=== PATIENT | female | born 1990 | race American Indian/Alaskan Native ===

== ENCOUNTER 2017-04-04 20:27 | Emergency (ER) | payer MEDICAID ==
[2017-04-04 20:55] VITALS: BP 133/80
--- NOTE | 2017-04-04 21:55 | EDM.PDOC ---
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, Other Medication(s) Lower Back Pain Score (Numeric/FACES): 5 - Related Data Allergies Allergy/AdvReac Type Severity Reaction Status Date / Time No Known Allergies Allergy Verified 04/04/17 20:31 Home Meds: Home Meds Ethinyl Estradiol/Drospirenone [Loryna 3 MG-0.02 MG] 1 tab PO DAILY 04/04/17 [ History] Past Medical History - Past Health History Medical/Surgical History: Denies Medical/Surgical History Social & Family History - Tobacco Use Smoking Status *Q: Unknown Ever Smoked Second Hand Smoke Exposure: No - Caffeine Use Caffeine Use: Reports: None - Alcohol Use Days Per Week of Alcohol Use: 0 - Recreational Drug Use Recreational Drug Use: No - Living Situation & Occupation Living situation: Reports: with Family ED ROS ENT - Review of Systems Review Of Systems: See Below Constitutional: Denies: Fever, Chills HEENT: Reports: Ear Pain, Sinus Problem, Throat Pain Respiratory: Reports: No Symptoms Cardiovascular: Reports: No Symptoms Endocrine: Reports: No Symptoms GI/Abdominal: Denies: Vomiting Musculoskeletal: Reports: No Symptoms Skin: Reports: No Symptoms ED EXAM, ENT - Physical Exam Exam: See Below Exam Limited By: No Limitations General Appearance: Alert, Mild Distress Eye Exam: Bilateral Eye: PERRL Ears: Normal External Exam, TM Erythema (right), TM Fluid (bilaterally) Nose: Normal Inspection Mouth/Throat: Normal Inspection, Pharyngeal Erythema (mild) Head: Atraumatic, Normocephalic, Sinus Tenderness Neck: Lymphadenopathy (L), Lymphadenopathy (R) Respiratory/Chest: No Respiratory Distress, Lungs Clear, Normal Breath Sounds Cardiovascular: Normal Peripheral Pulses, Regular Rate, Rhythm GI/Abdominal: Normal Bowel Sounds (Female) Exam: Normal External Exam Extremities: Normal Inspection Neurological: Alert, Oriented, Normal Cognition Psychiatric: Flat Affect, Other (Avoidant, minimal responses to questions offers no information voluntarily) Skin: Warm, Dry Course - Vital Signs Last Recorded V/S: Last Vital Signs Temp 98.2 F 04/04/17 20:54 Pulse 57 L 04/04/17 20:54 Resp 20 04/04/17 20:54 BP 133/80 04/04/17 20:54 Pulse Ox 100 04/04/17 20:54 - Orders/Labs/Meds Orders: Active Orders 24 hr Category Date Time Status CULTURE STREP A CONFIRMATION [] Stat Lab 04/04/17 20:56 Results STREP SCRN A RAPID W CULT CONF [] Stat Lab 04/04/17 20:56 Results Labs: Laboratory Tests 04/04/17 Range/Units 21:01 Urine Color Yellow (YELLOW) Urine Appearance Slightly cloudy (CLEAR) Urine pH 6.0 (5.0-9.0) Ur Specific [place] 1.015 (1.005-1.030) Urine Protein Negative (NEGATIVE) Urine Glucose (UA) Negative (NEGATIVE) Urine Ketones Negative (NEGATIVE) Urine Occult Blood Negative (NEGATIVE) Urine Nitrite Negative (NEGATIVE) Urine Bilirubin Negative (NEGATIVE) Urine Urobilinogen 0.2 (0.2-1.0) mg/dL Ur Leukocyte Esterase Negative (NEGATIVE) Urine RBC 0-5 /HPF Urine WBC 0-5 (0-5/HPF) /HPF Ur Epithelial Cells Rare /HPF Amorphous Sediment Few (0/HPF) /HPF Urine Bacteria Rare (0-FEW/HPF) /HPF Meds: Medications Discontinued Medications Generic Name Dose Route Start Last Admin Trade Name Roxi PRN Reason Stop Dose Admin Amoxicillin 500 mg 04/04/17 21:57 04/04/17 22:04 Amoxil PO 04/04/17 21:58 500 mg ONETIME ONE Administration Departure - Departure Time of Disposition: 21:54 Disposition: Home, Self-Care 01 Condition: Good Clinical Impression: Otitis media Qualifiers: Otitis media type: serous Chronicity: acute Laterality: bilateral Recurrence: not specified as recurrent Qualified Code(s): H65.03 - Acute serous otitis media , bilateral - Discharge Information Instructions: Otitis Media, Adult, [id number] Forms: ED Department Discharge Additional Instructions: amoxicillin 500mg one three times daily for one week alternate tylenol 650m with ibuprofen 600mg every 4 hours as needed for discomfort increase fluid intake chloraseptic throat spray as needed - My Orders Last 24 Hours: My Active Orders 04/04/17 20:56 CULTURE STREP A CONFIRMATION [RM] Stat STREP SCRN A RAPID W CULT CONF [RM] Stat - Assessment/Plan Last 24 Hours: My Active Orders 04/04/17 20:56 CULTURE STREP A CONFIRMATION [RM] Stat STREP SCRN A RAPID W CULT CONF [RM] Stat
[2017-04-04] MEDS ORDERED: Amoxicillin 500 MG Cap PO ONE (21:57)
== END 2017-04-04 22:05 | disposition home or self-care (01) ==
LOC: DL.ED 20:27
DX: H65.03 Acute serous otitis media, bilateral (principal)
CPT/HCPCS: 81001; 87081; 87430; 99283; A9270

== ENCOUNTER 2018-12-13 08:40 | Day surgery (SDC) | payer MEDICAID ==
[~2018-12-13 08:40] MED LIST: Lactated Ringers 1,000 ML IV SCH; Sodium Chloride 0.9% 10 ML Syringe FLUSH PRN; ceFAZolin 1 GM in Premix Bag 1 BAG IV ONE
[2018-12-13] MEDS ORDERED: Bupivacaine 0.5% 30 ML SDV INJECT ONE ×4 (08:41→15:06)
[2018-12-13] MEDS ORDERED: Dexamethasone 4 MG/ML SDV IV ONE (08:41)
[2018-12-13] MEDS ORDERED: Ondansetron 4 MG/2 ML SDV IV ONE (08:41)
[2018-12-13] MEDS ORDERED: Propofol 200 MG/20 ML SDV IV ONE (08:41)
[2018-12-13] MEDS ORDERED: Glycopyrrolate 0.2 MG/ML 2 ML SDV IV ONE (08:41)
[2018-12-13] MEDS ORDERED: Lidocaine 1% 30 ML SDV INJECT ONE ×4 (08:41→15:06)
[2018-12-13] MEDS ORDERED: Midazolam 1 MG/ML 2 ML SDV IV ONE (08:41)
[2018-12-13] MEDS ORDERED: Ketorolac 30 MG/ML SDV IVPUSH ONE (08:41)
[2018-12-13] MEDS ORDERED: fentaNYL 100 MCG/2 ML SDV IV ONE (08:41)
[2018-12-13] MEDS ORDERED: Lidocaine 1% 30 ML SDV ONE (11:58)
[2018-12-13] MEDS ORDERED: Bupivacaine 0.5% 30 ML SDV ONE (12:02)
[2018-12-13] MEDS ORDERED: ceFAZolin 2 GM in Premix Bag 1 BAG IV ONE (12:32)
[2018-12-13] MEDS ORDERED: Acetaminophen/oxyCODONE 325-5 MG Tab PO PRN (15:23)
--- NOTE | 2018-12-13 15:30 | PCM.OPNOTE ---
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 two large loose bone fragments to dorsal ankle joint and large spurring present. Pre Op Diagnosis: Right ankle pain with osteochondral defect of talus and anterior ankle joint spurring Post-Op Diagnosis: juanita Anesthesia Technique: General LMA Primary Surgeon: Aide Richter Anesthesia Provider: Waylon Jiménez EBL in mLs: 20 Complications: none Condition: Good Free Text/Narrative:: Intake & Output 12/13/18 12/13/18 12/13/18 06:59 14:59 22:59 Intake Total 50 Balance 50 Pt tolerated procedure well and was transported to recovery with vascular status intact to right LE. Well padded L&U splint with ankle in 90 applied. [place] microdrill from [employer] used.
--- NOTE | 2018-12-13 15:38 | PCM.OPNOTE ---
- General Post-Op/Procedure Note Date of Surgery/Procedure: 12/13/18 Condition: Good Free Text/Narrative:: Intake & Output 12/13/18 12/13/18 12/13/18 06:59 14:59 22:59 Intake Total 50 Balance 50
[2018-12-13 17:11] VITALS: BP 139/78
--- NOTE | 2018-12-16 21:05 | OR ---
DATE: 12/13/2018 PREOPERATIVE DIAGNOSES: 1. Right ankle pain. 2. 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 3. Right ankle bone spur, dorsal tibia and talus. POSTOPERATIVE DIAGNOSES: 1. Right ankle pain. 2. 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 3. Right ankle bone spur, dorsal tibia and talus. PROCEDURE PERFORMED: 1. Right ankle arthroscopy with osteochondral defect of the talus, debridement, and microfracture. 2. Right ankle open ankle arthrotomy with bone spur excision. ANESTHESIA: General LMA with preoperative local block of 20 mL 1:1 mixture of 1% lidocaine plain and 0.5% Marcaine plain. TOURNIQUET TIME: 88 minutes, pneumatic thigh tourniquet. ESTIMATED BLOOD LOSS: Minimal. SPECIMEN: None. COMPLICATIONS: None. FINDINGS: Right ankle joint with moderate chondromalacia throughout the entire ankle. There was a large amount of synovitis noted at both the medial and lateral gutters and the dorsal ankle. There was large meniscoid body at the lateral ankle. There was a large osteochondral defect of the talus at the posteromedial aspect. No other defects noted. There was large bone spurring at the dorsal tibia and talus. INDICATIONS: Kath is a 28-year-old female who presents with right ankle injury and continued pain. I had seen her in the past for this ankle, the last time was 3 years ago when we had scheduled the surgery at that time. However, she ended up cancelling that surgery and I have not seen her since. We did MRI, which showed a talus osteochondral defect. She is having continued pain to that ankle and now is to the point where she can no longer bend the ankle past a certain point, she states it feels like it locks up and catches or feels stuck. She also recently dropped a suitcase on the front of the ankle and has been having increased pain since. 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 It will swell up on her and become very painful. She initially twisted her right ankle over 3 years ago. At that time, she felt a pop and had immediate pain and inability to bear weight. She never got it checked out after the injury until several months later. Ankle is now hurting still whenever she is walking or standing or doing any type of activity. X-rays of the right ankle reveal shadowing/lucency at the medial talar dome in the area of the osteochondral defect. There is an ossicle at the posterior ankle. There is also a large spurring at the dorsal talus and dorsal tibia. No other signs of fracture. Ankle mortise is intact. MRI of the right ankle reveals osteochondral defect of the posteromedial talus. ATFL is intact as well as the deltoid ligament. No other signs of fracture. Bone spurring to the dorsal ankle. The patient voiced good understanding of the proposed procedure and possible complications and elects to have surgery at this time. DESCRIPTION OF PROCEDURE: The patient was taken to the operating room, lying in a supine position. After adequate anesthesia induction as described above, the right foot and ankle were prepped and draped in the usual sterile fashion. A pneumatic thigh tourniquet was inflated to 225 mmHg. Attention was then directed to the medial dorsal ankle, where the sural neurovascular bundle was marked out. A small stab incision was made just medial to the anterior tibial tendon being careful to avoid the saphenous neurovascular bundle. The 2.7 ankle scope was inserted into the ankle capsule. The dorsal cutaneous nerve on the lateral ankle was then marked out and a small stab incision was made just lateral to the peroneal tertius tendon being careful to avoid the nerve. The ankle joint was then visualized and there was noted to be moderate chondromalacia throughout the entire ankle. Large amounts of synovitis were noted to the medial and lateral gutter as well as the dorsal ankle. Large meniscoid body to the lateral ankle and dorsal spurring on the anterior tibia. There was also a large osteochondral defect at the posteromedial ankle joint. No other defects in the cartilage were noted. A curette was used to debride the osteochondral defect. The [employer] micro drilling set was used to micro drill the osteochondral defect. All loose cartilage was removed and the remainder of cartilage was tested with a probe and was noted to be stable. All synovitis and meniscoid bodies were debrided with a Tomcat debrider. No other defects remain. It was decided at this time that in order to get the large spurring at the dorsal ankle that we would need to convert this to an open ankle arthrotomy. The ankle scope and debrider were then removed from the ankle. The medial scope incision was then lengthened and sharp and blunt dissection was performed down to level of the ankle joint capsule. There was care to retract all neurovascular structures. A capsulotomy was made and the capsule was reflected anterior and laterally to protect all neurovascular structures, and a rongeur was used to remove the spurring on the dorsal aspect of the tibia and also the dorsal talus. At this time, there was noted to be a large loose body at the dorsal aspect of the ankle, and once removed, it was measured to be 1 cm x 0.8 cm, and this was at the area of the bone spur. There was also a smaller loose body at the dorsal ankle that was also removed, which was 0.5 x 0.5 cm. These were removed before the bone spur was removed. The bone spurring was all removed and a bone rasp was used to smooth all rough edges. Fluoroscopy was used to verify all spurring was removed from the dorsal ankle. The ankle was placed through range of motion. It was noted to be fluid without any catching and the range of motion had increased to just past 90 degrees without any bony block or catching. The area was then irrigated with copious amounts of sterile saline. Deep capsular closure was completed with 3-0 Vicryl and skin closure was completed with 4-0 nylon in both areas. The area was dressed with Xeroform to incision site, fluffs, Webril, and a well-padded L and U splint with the foot in neutral. The patient tolerated anesthesia and the procedure well and was transported to recovery room with vital signs stable and vascular status intact as noted by immediate hyperemia to all digits upon deflation of the thigh tourniquet. The patient was then discharged home when she met hospital discharge requirements. [facility] /[id number]
== END 2018-12-13 17:05 | disposition home or self-care (01) ==
LOC: DL.SDS 08:40
PROVIDERS: ATTEND Podiatrist
DX: M24.171 Other articular cartilage disorders, right ankle (principal); M25.771 Osteophyte, right ankle; M94.271 Chondromalacia, right ankle and joints of right foot; M65.871 Other synovitis and tenosynovitis, right ankle and foot; E78.5 Hyperlipidemia, unspecified; Z79.3 Long term (current) use of hormonal contraceptives
CPT/HCPCS: 27635; 28100; 29891; 81025; J0690; J1100; J1885; J2001; J2250; J2405; J2704; J3010; J3490; J7120

== ENCOUNTER 2019-01-29 21:47 | Emergency (ER) | payer MEDICAID ==
[2019-01-29 22:16] VITALS: BP 99/79
--- NOTE | 2019-01-29 22:28 | EDM.PDOC ---
ED HPI GENERAL MEDICAL PROBLEM - General Chief Complaint: Respiratory Problem Stated Complaint: CHEST COLD, COUGH [id number] Time Seen by Provider: 01/29/19 22:28 Anterior Chest Pain Score (Numeric/FACES): 7 - Related Data Allergies Allergy/AdvReac Type Severity Reaction Status Date / Time No Known Allergies Allergy Verified 01/29/19 22:16 Home Meds: Home Meds Ethinyl Estradiol/Drospirenone [Loryna 3 MG-0.02 MG] 1 tab PO DAILY 04/04/17 [ History] Past Medical History - Past Health History Medical/Surgical History: Denies Medical/Surgical History HEENT History: Reports: None Cardiovascular History: Reports: None Respiratory History: Reports: None Gastrointestinal History: Reports: None Genitourinary History: Reports: None RIGGER UP History: Reports: None Musculoskeletal History: Reports: Arthritis Other Musculoskeletal History: Reconstructed Rt. ankle. Neurological History: Reports: None Psychiatric History: Reports: None Endocrine/Metabolic History: Reports: Obesity/BMI 30+ Hematologic History: Reports: None Immunologic History: Reports: None Oncologic (Cancer) History: Reports: None Dermatologic History: Reports: None - Infectious Disease History Infectious Disease History: Reports: None - Past Surgical History Head Surgeries/Procedures: Reports: None HEENT Surgical History: Reports: None Cardiovascular Surgical History: Reports: None GI Surgical History: Reports: None Female Surgical History: Reports: None Musculoskeletal Surgical History: Reports: None Social & Family History - Family History Family Medical History: Noncontributory - Tobacco Use Smoking Status *Q: Never Smoker Second Hand Smoke Exposure: No - Caffeine Use Caffeine Use: Reports: Coffee Caffeine Use Comment: rare coffee - Recreational Drug Use Recreational Drug Use: No - Living Situation & Occupation Living situation: Reports: with Family Course - Vital Signs Last Recorded V/S: Last Vital Signs Temp 97.3 F 01/29/19 22:10 Pulse 54 L 01/29/19 22:10 Resp 16 01/29/19 22:10 BP 99/79 01/29/19 22:10 Pulse Ox 100 01/29/19 22:10 Departure - Departure Disposition: Left Without Being Seen 07 - Discharge Information Referrals: PCP,Unobtain [Primary Care Provider] - Forms: ED Department Discharge
== END 2019-01-30 00:46 | disposition left against medical advice (07) ==
LOC: DL.ED 21:47
DX: Z53.21 Procedure and treatment not carried out due to patient leaving prior to being seen by health care provider (principal)
CPT/HCPCS: 87081; 87430

== ENCOUNTER 2019-04-12 19:33 | Emergency (ER) | payer MEDICAID ==
[2019-04-12 19:42] VITALS: BP 136/71
[2019-04-12] MEDS ORDERED: Sodium Chloride 0.9% 1,000 ML IV ONE (19:46)
[2019-04-12 20:20] LABS: ANION GAP 12.6; CHLORIDE,CL 103 mmol/L (101-111); SODIUM,NA 139 mmol/L (135-145)
[2019-04-12] MEDS ORDERED: Amoxicillin/Clavulanate K 875-125 MG Tab PO ONE (20:48)
--- NOTE | 2019-04-12 20:55 | EDM.PDOC ---
ED HPI GENERAL MEDICAL PROBLEM - General Chief Complaint: General Stated Complaint: DIZZY Time Seen by Provider: 04/12/19 20:30 Source of Information: Reports: Patient History Limitations: Reports: No Limitations - History of Present Illness INITIAL COMMENTS - FREE TEXT/NARRATIVE: This 28 yo female patient reports to the ED due to dizziness for the past 3 days. The patient also reports she has been having some ear pain also. Onset Date: 04/09/19 Duration: Constant Location: Reports: Head Quality: Reports: Other Severity: Moderate Improves with: Reports: None Worsens with: Reports: None Context: Reports: Other Associated Symptoms: Reports: No Other Symptoms Treatments [facility]: Reports: NSAIDS Headache Pain Score (Numeric/FACES): 7 - Related Data Allergies Allergy/AdvReac Type Severity Reaction Status Date / Time No Known Allergies Allergy Verified 04/12/19 19:39 Home Meds: Home Meds Ethinyl Estradiol/Drospirenone [Loryna 3 MG-0.02 MG] 1 tab PO DAILY 04/04/17 [ History] Past Medical History - Past Health History Medical/Surgical History: Denies Medical/Surgical History HEENT History: Reports: None Cardiovascular History: Reports: None Respiratory History: Reports: None Gastrointestinal History: Reports: None Genitourinary History: Reports: None 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 ankle. Neurological History: Reports: None Psychiatric History: Reports: None Endocrine/Metabolic History: Reports: Obesity/BMI 30+ Hematologic History: Reports: None Immunologic History: Reports: None Oncologic (Cancer) History: Reports: None Dermatologic History: Reports: None - Infectious Disease History Infectious Disease History: Reports: None - Past Surgical History Head Surgeries/Procedures: Reports: None HEENT Surgical History: Reports: None Cardiovascular Surgical History: Reports: None GI Surgical History: Reports: None Female Surgical History: Reports: None Musculoskeletal Surgical History: Reports: None Social & Family History - Family History Family Medical History: Noncontributory - Tobacco Use Smoking Status *Q: Never Smoker - Caffeine Use Caffeine Use: Reports: None Caffeine Use Comment: rare coffee - Recreational Drug Use Recreational Drug Use: No - Living Situation & Occupation Living situation: Reports: with Family ED ROS GENERAL - Review of Systems Review Of Systems: ROS reveals no pertinent complaints other than HPI. ED EXAM, GENERAL - Physical Exam Exam: See Below Exam Limited By: No Limitations General Appearance: Alert, WD/WN, Mild Distress Eye Exam: Bilateral Eye: EOMI, Normal Inspection, PERRL Ear Exam: Right Ear: Erythema, TM Red, TM Bulging, Left Ear: TM normal Nose: Normal Inspection, Normal Mucosa, No Blood Throat/Mouth: Normal Inspection, Normal Lips, Normal Teeth, Normal Gums, Normal Oropharynx, Normal Voice, No Airway Compromise Head: Atraumatic, Normocephalic Neck: Normal Inspection, Supple, Non-Tender, Full Range of Motion Respiratory/Chest: No Respiratory Distress, Lungs Clear, Normal Breath Sounds, No Accessory Muscle Use, Chest Non-Tender Cardiovascular: Normal Peripheral Pulses, Regular Rate, Rhythm, No Edema, No Gallop, No JVD, No Murmur, No Rub GI/Abdominal: Normal Bowel Sounds, Soft, Non-Tender, No Organomegaly, No Distention, No Abnormal Bruit, No Mass (Female) Exam: Deferred Rectal (Female) Exam: Deferred Back Exam: Normal Inspection, Full Range of Motion, NT Extremities: Normal Inspection, Normal Range of Motion, Non-Tender, Normal Capillary Refill, No Pedal Edema Neurological: Alert, Oriented, CN II-XII Intact, Normal Cognition, Normal Gait, Normal Reflexes, No Motor/Sensory Deficits Psychiatric: Normal Affect, Normal Mood Skin Exam: Warm, Dry, Intact, Normal Color, No Rash Lymphatic: No Adenopathy Course - Vital Signs Last Recorded V/S: Last Vital Signs Temp 36.1 C 04/12/19 19:40 Pulse 58 L 04/12/19 19:40 Resp 16 04/12/19 19:40 BP 136/71 04/12/19 19:40 Pulse Ox 99 04/12/19 19:40 - Orders/Labs/Meds Labs: Laboratory Tests 04/12/19 04/12/19 04/12/19 Range/Units 19:53 19:53 19:53 WBC (5.0-10.0) 10^3/uL RBC (4.2-5.4) 10^6/uL Hgb (12.0-16.0) g/dL Hct (37.0-47.0) % MCV (80-100) fL MCH (27.0-34.0) pg MCHC (33.0-35.0) g/dL Plt Count (150-450) 10^3/uL Neut % (Auto) (42.2-75.2) % Lymph % (Auto) (20.5-50.1) % [place] % (Auto) (2-8) % Eos % (Auto) (1.0-3.0) % Baso % (Auto) (0.0-1.0) % Sodium (135-145) mmol/L Potassium (3.6-5.0) mmol/L Chloride (101-111) mmol/L Carbon Dioxide (21.0-31.0) mmol/L Anion Gap BUN (7-18) mg/dL Creatinine (0.6-1.3) mg/dL Est Cr Clr Drug Dosing mL/min Estimated GFR (MDRD) BUN/Creatinine Ratio Glucose (74-105) mg/dL Calcium (8.4-10.2) mg/dl Total Bilirubin (0.2-1.0) mg/dL AST (10-42) IU/L ALT (10-60) IU/L Alkaline Phosphatase (42-121) IU/L Total Protein (6.7-8.2) g/dl Albumin (3.2-5.5) g/dl Globulin Albumin/Globulin Ratio Urine Color Yellow (YELLOW) Urine Appearance Clear (CLEAR) Urine pH 5.5 (5.0-9.0) Ur Specific [place] 1.025 (1.005-1.030) Urine Protein Negative (NEGATIVE) Urine Glucose (UA) Negative (NEGATIVE) Urine Ketones Negative (NEGATIVE) Urine Occult Blood Negative (NEGATIVE) Urine Nitrite Negative (NEGATIVE) Urine Bilirubin Negative (NEGATIVE) Urine Urobilinogen 0.2 (0.2-1.0) mg/dL Ur Leukocyte Esterase Negative (NEGATIVE) Urine HCG, Qual Negative Urine Opiates Screen Negative (NEGATIVE) Ur Oxycodone Screen Negative (NEGATIVE) Urine Methadone Screen Negative (NEGATIVE) Ur Barbiturates Screen Negative (NEGATIVE) U Tricyclic Antidepress Negative (NEGATIVE) Ur Phencyclidine Scrn Negative (NEGATIVE) Ur Amphetamine Screen Negative (NEGATIVE) U Methamphetamines Scrn Negative (NEGATIVE) Urine MDMA Screen Negative (NEGATIVE) U Benzodiazepines Scrn Negative (NEGATIVE) Urine Cocaine Screen Negative (NEGATIVE) U Marijuana (THC) Screen Negative (NEGATIVE) 04/12/19 04/12/19 Range/Units 19:55 19:55 WBC 9.9 (5.0-10.0) 10^3/uL RBC 4.89 (4.2-5.4) 10^6/uL Hgb 15.0 (12.0-16.0) g/dL Hct 44.7 (37.0-47.0) % MCV 91.4 (80-100) fL MCH 30.7 (27.0-34.0) pg MCHC 33.6 (33.0-35.0) g/dL Plt Count 281 (150-450) 10^3/uL Neut % (Auto) 59.6 (42.2-75.2) % Lymph % (Auto) 30.0 (20.5-50.1) % [place] % (Auto) 8.1 H (2-8) % Eos % (Auto) 2.0 (1.0-3.0) % Baso % (Auto) 0.3 (0.0-1.0) % Sodium 139 (135-145) mmol/L Potassium 3.6 (3.6-5.0) mmol/L Chloride 103 (101-111) mmol/L Carbon Dioxide 27.0 (21.0-31.0) mmol/L Anion Gap 12.6 BUN 11 (7-18) mg/dL Creatinine 0.9 (0.6-1.3) mg/dL Est Cr Clr Drug Dosing 83.74 mL/min Estimated GFR (MDRD) > 60 BUN/Creatinine Ratio 12.22 Glucose 82 (74-105) mg/dL Calcium 8.9 (8.4-10.2) mg/dl Total Bilirubin 0.6 (0.2-1.0) mg/dL AST 33 (10-42) IU/L ALT 64 H (10-60) IU/L Alkaline Phosphatase 60 (42-121) IU/L Total Protein 7.8 (6.7-8.2) g/dl Albumin 4.1 (3.2-5.5) g/dl Globulin 3.7 Albumin/Globulin Ratio 1.11 Urine Color (YELLOW) Urine Appearance (CLEAR) Urine pH (5.0-9.0) Ur Specific [place] (1.005-1.030) Urine Protein (NEGATIVE) Urine Glucose (UA) (NEGATIVE) Urine Ketones (NEGATIVE) Urine Occult Blood (NEGATIVE) Urine Nitrite (NEGATIVE) Urine Bilirubin (NEGATIVE) Urine Urobilinogen (0.2-1.0) mg/dL Ur Leukocyte Esterase (NEGATIVE) Urine HCG, Qual Urine Opiates Screen (NEGATIVE) Ur Oxycodone Screen (NEGATIVE) Urine Methadone Screen (NEGATIVE) Ur Barbiturates Screen (NEGATIVE) U Tricyclic Antidepress (NEGATIVE) Ur Phencyclidine Scrn (NEGATIVE) Ur Amphetamine Screen (NEGATIVE) U Methamphetamines Scrn (NEGATIVE) Urine MDMA Screen (NEGATIVE) U Benzodiazepines Scrn (NEGATIVE) Urine Cocaine Screen (NEGATIVE) U Marijuana (THC) Screen (NEGATIVE) Meds: Medications Discontinued Medications Generic Name Dose Route Start Last Admin Trade Name Freq PRN Reason Stop Dose Admin Amoxicillin/Clavulanate Potassium 1 tab 04/12/19 20:48 Augmentin 875 Mg/125 Mg PO 04/12/19 20:49 ONETIME ONE Sodium Chloride 1,000 mls @ 999 mls/hr 04/12/19 19:46 04/12/19 19:55 Normal Saline IV 04/12/19 20:46 999 mls/hr .BOLUS ONE Administration Departure - Departure Time of Disposition: 20:53 Disposition: Home, Self-Care 01 Condition: Fair Clinical Impression: Right otitis media with effusion - Discharge Information *PRESCRIPTION DRUG MONITORING PROGRAM REVIEWED*: Not Applicable *COPY OF PRESCRIPTION DRUG MONITORING REPORT IN PATIENT JOSE: Not Applicable Instructions: Otitis Media, Adult, [id number] Care Plan Goals: The patient was advised of the examination and lab results during the visit. The patient was given a dose of Augmentin while in the ED. The patient was discharged with a script for Augmentin (875/125) #20 to take 1 by mouth 2 times per day for 10 days. The patient may take [id number] medications for temporary symptom relief. If the patient has any additional symptoms or concerns , the patient should either return to the emergency department or visit her primary care facility.
== END 2019-04-12 20:58 | disposition home or self-care (01) ==
LOC: DL.ED 19:33
DX: H65.91 Unspecified nonsuppurative otitis media, right ear (principal); Z79.899 Other long term (current) drug therapy
CPT/HCPCS: 36415; 80053; 80305; 81003; 81025; 85025; 96360; 99283; A9270; J7030

== ENCOUNTER 2019-10-01 15:53 | Emergency (ER) | payer MEDICAID | END 2019-10-01 16:59 | disposition left against medical advice (07) | LOC: DL.ED 15:53 | DX: Z53.21 Procedure and treatment not carried out due to patient leaving prior to being seen by health care provider (principal) ==

== ENCOUNTER 2022-05-28 05:13 | Emergency (ER) | payer MEDICAID | END 2022-05-28 20:25 | disposition left against medical advice (07) | LOC: DL.ED 05:13 | DX: Z53.21 Procedure and treatment not carried out due to patient leaving prior to being seen by health care provider (principal) ==

== ENCOUNTER 2023-07-15 13:45 | Emergency (ER) | payer MEDICAID ==
[2023-07-15 15:32] LABS: INFLUENZA A NAA NEGATIVE (NEGATIVE); INFLUENZA B NAA NEGATIVE (NEGATIVE); RESPIRATORY SYNCYTIAL VIR NAA NEGATIVE (NEGATIVE)
[2023-07-15 15:35] LABS: CORONAVIRUS COVID-19 NAA POSITIVE (NEGATIVE)
[2023-07-15 15:58] VITALS: BP 119/78; PULSE 70
[2023-07-15] MEDS ORDERED: Dexamethasone 4 MG Tab PO ONE (16:38)
[2023-07-15] MEDS ORDERED: Take Home: Doxycycline 100 MG Cap, 4 Cap Pack PO ONE (16:39)
[2023-07-15] MEDS ORDERED: Dexamethasone 6 MG TABLET ONE (16:43)
== END 2023-07-15 16:45 | disposition home or self-care (01) ==
LOC: DL.ED 13:45
DX: U07.1 COVID-19 (principal); H66.002 Acute suppurative otitis media without spontaneous rupture of ear drum, left ear; E66.9 Obesity, unspecified; Z68.41 Body mass index [BMI] 40.0-44.9, adult
CPT/HCPCS: 0241U; 87081; 87430; 99283; 99284; A9270-GY; J8540

== ENCOUNTER 2024-05-03 21:10 | Emergency (ER) | payer MEDICAID ==
[2024-05-03] MEDS: Take Home: Clindamycin HCl 150 MG, 12 Cap Pack PO ONE (22:04)
[2024-05-04 01:54] VITALS: BP 134/82; PULSE 74
== END 2024-05-03 22:10 | disposition home or self-care (01) ==
LOC: DL.ED 21:10
DX: L02.213 Cutaneous abscess of chest wall (principal); E66.9 Obesity, unspecified; Z68.44 Body mass index [BMI] 60.0-69.9, adult
CPT/HCPCS: 99282; 99283; A9270-GY

== ENCOUNTER 2024-06-02 13:39 | Emergency (ER) | payer BC, MEDICAID ==
[2024-06-02 14:02] LABS: BASOPHILS PERCENT AUTO 0.4 % (0.0-1.0); EOSINOPHILS PERCENT AUTO 3.7 % (1.0-3.0); HEMATOCRIT 48.3 % (37.0-47.0); HEMOGLOBIN 16.3 g/dL (12.0-16.0); LYMPHOCYTES PERCENT AUTO 33.4 % (20.5-50.1); MEAN CORPUSCULAR HEMOGLOBIN 30.6 pg (27.0-34.0); MEAN CORPUSCULAR HGB CONC 33.7 g/dL (33.0-35.0); MEAN CORPUSCULAR VOLUME 90.8 fL (80-100); MONOCYTES PERCENT AUTO 6.9 % (2-8); NEUTROPHILS PERCENT AUTO 55.6 % (42.2-75.2); PLATELET COUNT,PLT 220 10^3/uL (150-450); RED BLOOD CELL COUNT 5.32 10^6/uL (4.2-5.4); WHITE BLOOD CELL COUNT,WBC 7.5 10^3/uL (5.0-10.0)
[2024-06-02 14:03] VITALS: BP 165/96; PULSE 78
[2024-06-02] MEDS: Ketorolac 30 MG/ML SDV IVPUSH ONE (14:05)
[2024-06-02 14:20] LABS: A/G RATIO 1.1; ALBUMIN 3.9 g/dL (3.4-5.0); ANION GAP 14.4 mEq/L (7-13); BILIRUBIN TOTAL 0.7 mg/dL (0.2-1.0); BUN/CREATININE RATIO 13.2 (No establ ref range); CREATININE 1.06 mg/dL (0.55-1.02); EST CRCL DRUG DOSING (CG) 73.41 mL/min; MAGNESIUM 1.8 mg/dL (1.8-2.4); POTASSIUM,K 4.4 mmol/L (3.5-5.1); PROTEIN TOTAL,TP 7.6 g/dL (6.4-8.2)
[2024-06-02 14:37] LABS: APPEARANCE,URINE CLEAR (CLEAR); BILIRUBIN,URINE NEGATIVE (NEGATIVE); COLOR,URINE YELLOW (YELLOW); GLUCOSE,URINE NEGATIVE (NEGATIVE); KETONES,URINE NEGATIVE (NEGATIVE); LEUKOCYTE ESTERASE,URINE NEGATIVE (NEGATIVE); NITRITE,URINE NEGATIVE (NEGATIVE); OCCULT BLOOD,URINE NEGATIVE (NEGATIVE); PH,URINE 5.5 (5.0-9.0); PROTEIN,URINE NEGATIVE (NEGATIVE); UROBILINOGEN,URINE 0.2 mg/dL (0.2-1.0)
[2024-06-02] MEDS ORDERED: Take Home: Cyclobenzaprine 10 MG Tab, 4 Tab Pack PO ONE (14:43)
== END 2024-06-02 14:55 | disposition home or self-care (01) ==
LOC: DL.ED 13:39
DX: S29.012A Strain of muscle and tendon of back wall of thorax, initial encounter (principal); E66.9 Obesity, unspecified; Z68.35 Body mass index [BMI] 35.0-35.9, adult; Y92.007 Garden or yard of unspecified non-institutional (private) residence as the place of occurrence of the external cause
CPT/HCPCS: 36415; 80053; 81003; 83690; 83735; 85025; 96374; 99283; J1885

== ENCOUNTER 2024-10-02 17:36 | Emergency (ER) | payer BC, MEDICAID ==
[2024-10-02 19:21] VITALS: BP 166/99; PULSE 62
[2024-10-02] MEDS: Pseudoephedrine 30 MG Tab PO ONE (19:31)
[2024-10-02] MEDS: Dexamethasone 4 MG/ML SDV PO ONE (19:31)
== END 2024-10-02 19:50 | disposition home or self-care (01) ==
LOC: DL.ED 17:36
DX: H69.82 Other specified disorders of Eustachian tube, left ear (principal); J32.9 Chronic sinusitis, unspecified
CPT/HCPCS: 99283; A9270-GY; J1100